=== PATIENT | female | born 1965 | race Caucasian/White ===

== ENCOUNTER 2018-10-04 13:04 | Outpatient (CLI) | payer MEDICARE ==
--- NOTE | 2018-10-04 16:53 | BD ---
DEXA BONE DENSITY STUDY: Date: 10/04/18 HISTORY: Osteopenia. COMPARISON: Bone mineral density study dated 10/14/16. FINDINGS: Lumbar Spine: BMD (g/cm2) L1 0.786 T-Score: -1.9 Z-Score: -1.0 L2 0.815 T-Score: -1.9 Z-Score: -0.9 L3 0.883 T-Score: -1.8 Z-Score: -0.8 L4 0.922 T-Score: -1.3 Z-Score: -0.2 L1-L4 0.854 T-Score: -1.8 Z-Score: -0.7 WHO Classification: Osteopenia. Bone mineral density is unchanged from the comparison examination. Femoral Neck: 0.604 T-Score: -2.2 Z-Score: -1.2 Total Femur: 0.793 T-Score: -1.2 Z-Score: -0.6 WHO Classification: Osteopenia. Bone mineral density of the total left hip is slightly decreased from the comparison examination. The 10 year fracture risk FRAX score is not reported as the patient is premenopausal. IMPRESSION: Osteopenia of the lumbar spine and femoral neck. POS: [facility]
== END 2018-10-04 13:05 | disposition home or self-care (01) ==
LOC: BICMAMMO 13:04
PROVIDERS: ATTEND Internal Medicine Hematology & Oncology
DX: Z12.31 Encounter for screening mammogram for malignant neoplasm of breast (principal); M85.89 Other specified disorders of bone density and structure, multiple sites; Z85.3 Personal history of malignant neoplasm of breast; Z80.3 Family history of malignant neoplasm of breast
CPT/HCPCS: 77063; 77067; 77080

== ENCOUNTER 2019-11-10 15:44 | Outpatient (CLI) | payer MEDICARE ==
--- NOTE | 2019-11-10 16:45 | MMO ---
Bilateral MAMMO Bilat Screen [facility]. CLINICAL HISTORY: Patient is 54 years old and is seen for screening. The patient has the following family history of breast cancer: paternal aunt, malignant (generic), X5. The patient has a history of lumpectomy procedure revealed invasive ductal left breast carcinoma in July, and malignant (generic) in the left breast in 2008. The patient has a history of left Lumpectomy in July, - malignant. VIEWS: The views performed were: bilateral craniocaudal with tomosynthesis and bilateral mediolateral oblique with tomosynthesis. FILMS COMPARED: The present examination has been compared to prior imaging studies performed at [facility] on 01/02/2015, 07/19/2015, 10/14/2016 and 10/04/2018. This study has been interpreted with the assistance of computer-aided detection. MAMMOGRAM FINDINGS: There are scattered fibroglandular densities. There are stable post operative changes seen in the upper-outer region of the left breast. There are no suspicious masses, suspicious calcifications, or new areas of architectural distortion. IMPRESSION: THERE IS NO MAMMOGRAPHIC EVIDENCE OF MALIGNANCY. A ROUTINE FOLLOW-UP MAMMOGRAM IN 1 YEAR IS RECOMMENDED. THE RESULTS OF THIS EXAM WERE SENT TO THE PATIENT. ACR BI-RADS Category 2 - Benign finding MAMMOGRAPHY NOTE: 1. A negative mammogram report should not delay a biopsy if a dominant of clinically suspicious mass is present. 2. Approximately 10% to 15% of breast cancers are not detected by mammography. 3. Adenosis and dense breasts may obscure an underlying neoplasm. Reported by: DANTE CHÁVEZ MD Electonically Signed: [id number]
== END 2019-11-10 15:45 | disposition home or self-care (01) ==
LOC: BICMAMMO 15:44
PROVIDERS: ATTEND Obstetrics & Gynecology
DX: Z12.31 Encounter for screening mammogram for malignant neoplasm of breast (principal); Z80.3 Family history of malignant neoplasm of breast; Z85.3 Personal history of malignant neoplasm of breast; Z98.890 Other specified postprocedural states
CPT/HCPCS: 77063; 77067

== ENCOUNTER 2022-01-20 14:29 | Outpatient (CLI) | payer MEDICARE | END 2022-01-20 14:30 | disposition home or self-care (01) | LOC: BICMAMMO 14:29 | PROVIDERS: ATTEND Obstetrics & Gynecology | DX: Z12.31 Encounter for screening mammogram for malignant neoplasm of breast (principal); Z80.3 Family history of malignant neoplasm of breast; Z85.3 Personal history of malignant neoplasm of breast; Z98.890 Other specified postprocedural states | CPT/HCPCS: 77063; 77067 ==

== ENCOUNTER 2022-07-17 16:50 | Outpatient (CLI) | payer MEDICARE ==
[2022-07-17 17:23] LABS: #Eosinphils 0.1 10x3/uL (0.0-0.5); #Monocytes 0.3 10x3/uL (0.0-1.1); #Neutrophils 2.2 10x3/uL (1.5-8.4); %Basophils 0.7 % (0.0-2.0); %Eosinophils 3.2 % (0.0-6.0); %Lymphocytes 36.7 % (18.0-47.0); %Monocytes 7.9 % (0.0-10.0); %Neutrophils 51.3 % (40.0-75.0); Mean Corpuscular HGB CONC 35.2 g/dL (32.0-36.0); Mean Corpuscular Hemoglobin 32.1 pg (27.0-33.0); Mean Corpuscular Volume 91.1 fl (81.6-98.3); Mean Platelet Volume 9.3 fl (7.4-10.4); Platelet Count 284 10x3/uL (150-450); RBC Distribution Width 12.8 % (11.5-14.5); Red Blood Cell (RBC) Count 4.05 10x6/uL (3.90-5.03); White Blood Cell (WBC) Count 4.3 10x3/uL (3.5-10.5)
== END 2022-07-17 16:51 | disposition home or self-care (01) ==
LOC: LABBT 16:50
PROVIDERS: ATTEND Orthopaedic Surgery Hand Surgery
DX: Z01.818 Encounter for other preprocedural examination (principal); M20.022 Boutonniere deformity of left finger(s)
CPT/HCPCS: 85025; 93005; 93010

== ENCOUNTER 2022-07-21 13:21 | Day surgery (SDC) | payer MEDICARE ==
[2022-07-17 12:26] VITALS: BMI 25.7
[2022-07-21] MEDS ORDERED: Vancomycin 1 GM/200 ML BAG ONE (15:06)
[2022-07-21] MEDS ORDERED: fentaNYL PF 100 MCG/2 ML SYRINGE ONE (15:39)
[2022-07-21] MEDS ORDERED: Neomycin-Polymyxin 1 ML AMP ONE (15:45)
[2022-07-21] MEDS ORDERED: Bupivacaine PF 0.5% 30 ML VIAL ONE (15:45)
[2022-07-21] MEDS ORDERED: Bacitracin Zinc Ointment 30 gm TUBE ONE (15:45)
[2022-07-21] MEDS ORDERED: Ketorolac Tromethamine 30 MG/ML VIAL ONE (16:06)
[2022-07-21] MEDS ORDERED: Dexamethasone 20 MG/5 ML VIAL ONE (16:06)
[2022-07-21] MEDS ORDERED: PROPOFOL 200 MG/20 ML VIAL ONE (16:06)
[2022-07-21] MEDS ORDERED: Ondansetron PF 4 MG/2 ML Vial ONE (16:06)
[2022-07-21] MEDS ORDERED: FENTANYL 50 MCG/ML 1 ML VIAL ONE ×2 (18:20→19:06)
[2022-07-21] MEDS ORDERED: Amlodipine 5 MG TAB ONE (19:17)
[2022-07-21] MEDS ORDERED: HYDROcodone/Acetaminophen 5/325 mg Tablet ONE (19:18)
== END 2022-07-21 19:50 | disposition home or self-care (01) ==
LOC: SDC 13:21
PROVIDERS: ATTEND Orthopaedic Surgery Hand Surgery
PROC: 0RNX0ZZ Release Left Finger Phalangeal Joint, Open Approach (ICD-10-PCS; principal; 2022-07-21)
PROC: 0LM80ZZ Reattachment of Left Hand Tendon, Open Approach (ICD-10-PCS; 2022-07-21)
DX: M20.022 Boutonniere deformity of left finger(s) (principal); S67.197A Crushing injury of left little finger, initial encounter; S66.317A Strain of extensor muscle, fascia and tendon of left little finger at wrist and hand level, initial encounter; M20.092 Other deformity of left finger(s); Z85.3 Personal history of malignant neoplasm of breast; Z79.899 Other long term (current) drug therapy; Z88.0 Allergy status to penicillin; Z88.5 Allergy status to narcotic agent; W23.0XXA Caught, crushed, jammed, or pinched between moving objects, initial encounter
CPT/HCPCS: 26426; 26525; 73140; J3010; C1713; C1894; J1100; J1885; J2405; J2704; J3370; S0020

== ENCOUNTER 2025-05-22 14:43 | Outpatient (CLI) | payer MEDICARE | END 2025-05-22 14:44 | disposition home or self-care (01) | LOC: BICMAMMO 14:43 | PROVIDERS: ATTEND Internal Medicine Rheumatology | DX: Z12.31 Encounter for screening mammogram for malignant neoplasm of breast (principal); M85.89 Other specified disorders of bone density and structure, multiple sites; M81.0 Age-related osteoporosis without current pathological fracture; Q83.8 Other congenital malformations of breast; Z80.3 Family history of malignant neoplasm of breast; Z85.3 Personal history of malignant neoplasm of breast; Z98.890 Other specified postprocedural states | CPT/HCPCS: 77063; 77067; 77080 ==